=== PATIENT | female | born 1985 | race American Indian/Alaskan Native ===

== ENCOUNTER 2020-12-19 19:32 | Outpatient (CLI) | payer BC, MEDICAID ==
[2020-12-19 20:16] VITALS: BP 115/56
[2020-12-19 20:43] LABS: Bilirubin,Urine NEG (Negative); Blood,Urine NEG (Negative); Color,Urine Yellow (Yellow); Mucus,Urine FEW /HPF; Protein,Urine <15 mg/dL mg/dL (Negative); WBC,Urine < 1.0 /HPF (0.0-6.0)
[2020-12-19] MEDS ORDERED: LACTATED RINGERS 500 ML IV ONE (21:12)
--- NOTE | 2020-12-19 21:19 | Event Note ---
Date: 12/19/20 (No evidence of SROM) Pt is a 35 y.o. @ 21.5 wks with c/o possible SROM. States that she has noticed over the last couple of days that she was "leaking". FHR via doppler is 150- 160's. There are no contractions on the monitor. Sterile speculum exam completed. No evidence of SROM, nitrazine negative. Explained findings to the patient. Pt to keep next scheduled appointment and to call the office with any questions or concerns.
== END 2020-12-19 21:42 | disposition home or self-care (01) ==
LOC: TRG 19:32 → APU 19:33 → TRG 21:42
PROVIDERS: ATTEND Obstetrics & Gynecology
DX: O42.912 Preterm premature rupture of membranes, unspecified as to length of time between rupture and onset of labor, second trimester (principal); Z3A.21 21 weeks gestation of pregnancy
CPT/HCPCS: 59020; 81001

== ENCOUNTER 2021-03-03 17:39 | Outpatient (CLI) | payer BC, MEDICAID ==
[2021-03-03 18:06] VITALS: BP 114/67
[2021-03-03] MEDS ORDERED: LACTATED RINGERS 500 ML IV ONE (18:58)
== END 2021-03-03 19:13 | disposition home or self-care (01) ==
LOC: TRG 17:39 → APU 17:41 → TRG 19:13
PROVIDERS: ATTEND Obstetrics & Gynecology
DX: O60.03 Preterm labor without delivery, third trimester (principal); Z3A.36 36 weeks gestation of pregnancy
CPT/HCPCS: 36415; 84112

== ENCOUNTER 2021-04-09 19:17 | Inpatient (IN) | payer BC, MEDICAID ==
--- NOTE | 2021-04-09 21:05 | History and Physical Report ---
History of Present Illness Date of examination: 04/09/21 Date of admission: 04/09/2021 Chief complaint: "I'm having contractions" History of present illness: EDC: 04/26/2021 Gestational Age: 37 4/7 weeks Past History : 5 Term Births: 2 Premature Births: 0 Living Children: 2 Para: 2 Mult. Births: 0 Prev : 0 Aborta: 2 Elect. Ab: 2 Spont. Ab: 0 Ectopics: 0 # 1 Delivery date: 04/28/2000 Weeks Gestation: 40.4 Delivery type: Hours of labor: 24 Anesthesia type: epidural Delivery location: [facility] Infant Sex: Female weight: 8lbs 8oz # 2 Delivery date: 10/08/2006 Weeks Gestation: 40 Delivery type: Anesthesia type: epidural Delivery location: [facility] Sex: Male weight: 7lbs 8oz # 3 Delivery type: EAB # 4 Delivery type: EAB Past Medical History: Reviewed history from 10/19/2018 and no changes required: Hypertension- no meds (pt denies this Hx on 09/12/20) Negative Past Medical History Past Surgical History: negative Family History Summary: Reviewed history and no changes required: 09/13/2020 Father - Has Family History of Hypertension - Entered On: 09/12/2020 Mother - Has Family History of Hypertension - Entered On: 09/12/2020 Mother - Has Family History of Diabetes - Entered On: 09/12/2020 Social History: Reviewed history from 10/19/2018 and no changes required: provider asked pt several times if she smokes and she stated no each time. Smoking History: Patient has never smoked. Past Medical History Anesthesia Complications: negative Anemia: negative Autoimmune Disorder: negative Bleeding Disorder: negative Blood Transfusions: negative Breast Disease: negative Diabetes: negative Heart Disease: negative Hypertension: negative Hepatitis/Liver Disease: negative Kidney Disease/UTI: negative Neurologic/Epilepsy/Migraines: negative Phlebitis/Varicosities: negative Psychiatric: negative Pulmonary Disease/Asthma: negative Thyroid Disease: negative Hospitalizations: negative Surgery (Non-linen worker): negative Abnormal PAP: positive Infertility: negative Uterine Anomaly: negative Uterine Surgery (not C/S): negative Other Gynecologic Problems: negative Social Hx: provider asked pt several times if she smokes and she stated no each time. Smoking History: Patient has never smoked. Infection History Hx of STD: none HIV Risk Eval: low risk Hepatitis B Risk Eval: low risk Personal hx. of genital herpes: no Partner hx. of genital herpes: no Rash, Viral, or Febrile illness since last LMP? no Varicella/Chicken Pox Status: Previous Disease TB Risk: no Genetic History ADVANCED MATERNAL AGE Congenital Heart Defect: Mom: no Dad: no Bello Disease: Mom: no Dad: no Thalassemia Mom: no Dad: no Neural Tube Defect Mom: no Dad: no Down's Syndrome Mom: no Dad: no Tommy-Sachs Mom: no Dad: no Sickle Cell Disease/Trait Mom: no Dad: no Hemophilia Mom: no Dad: no Muscular Dystrophy Mom: no Dad: no Cystic Fibrosis Mom: no Dad: no Maury Chorea Mom: no Dad: no Mental Retardation Mom: no Dad: no Fragile X Mom: no Dad: no Other Genetic/Chromosomal Disorder Mom: no Dad: no Child w/other defect Mom: no Dad: no Enviromental Exposures Enviromental Exposures Reviewed Xray Exposure: no Medication, drug, or alcohol use since LMP: yes Chemical/Other Exposure: no Exposure to Cat Liter: yes Hx of Parvovirus (Fifth Disease): no Occupational Exposure to Children: none Comments: reports social drinking for [place] Active Medications (reviewed today): PLUS 27-1 MG ORAL TABLET ( VIT-FE FUMARATE-FA) 1 po daily PEPCID 40 MG ORAL TABLET (FAMOTIDINE) 1/2 tab BID NUVARING 0.12-0.015 MG/24HR VAGINAL RING (ETONOGESTREL-ETHINYL ESTRADIOL) 1ring, inserted vaginally leave in place for 3 consecutive weeks, removed for 1 week.Iinsert new ring 7 days after the last was removed Current Allergies (reviewed today): No known allergies Past History Past Medical History: other (see HPI) Past Surgical History: other (see HPI) GRAIN PROCESSOR History: other (see HPI) Family/Genetic History: other (see HPI) Social history: other (see HPI) - Obstetrical History Expected Date of Delivery: 04/26/21 Actual Gestation: 37 Week(s) 4 Day(s) : 5 Para: 2 Hx # Term Pregnancies: 2 Number of Pregnancies: 0 Spontaneous Abortions: 0 Induced : 2 Number of Living Children: 2 Medications and Allergies Allergies Allergy/AdvReac Type Severity Reaction Status Date / Time No Known Allergies Allergy Verified 04/09/21 20:35 Review of Systems All systems: negative Genitourinary: contractions - Vital Signs Vital signs: Vital Signs Pulse BP 103 H 124/59 04/09/21 19:40 04/09/21 19:40 Temp Pulse Resp BP Pulse Ox 98.2 F 98 H 18 124/59 99 04/09/21 19:46 04/09/21 19:46 04/09/21 19:46 04/09/21 19:46 04/09/21 19:46 - Physical Exam Breasts: Positive: deferred Cardiovascular: Regular rate Lungs: Positive: Normal air movement Abdomen: Positive: normal appearance, soft. Negative: tenderness, guarding Genitourinary (Female): Positive: normal external genitalia, normal perenium Vulva: both: normal Vagina: Positive: normal moisture. Negative: discharge Uterus: Positive: normal size, normal contour Anus/Rectum: Positive: normal perianal skin Extremities: Positive: normal - Obstetrical FHR: auscultation normal, category 1 Uterine Contraction Monitor Mode: External Cervical Dilatation: 3 (per machine setter automatic) Cervical Effacement Percentage: 60 station: -2 Uterine Contraction Pattern: Regular Uterine Contraction Intensity: Mild Results All other labs normal. GBS NEGATIVE Tests: (1) Profile I ([id number]) Order Note: Clinical Information: SRC:UR HBsAg Screen Negative Negative *1 RPR Non Reactive Non Reactive *2 Rubella Antibodies, IgG 1.76 index Immune >0.99 *3 Non-immune <0.90 Equivocal 0.90 - 0.99 Immune >0.99 ABO Grouping O *4 Rh Factor Positive *5 Please note: Prior records for this patient's ABO / Rh type are not available for additional verification. Antibody Screen Negative Negative *6 WBC 10.7 x10E3/uL 3.4-10.8 *7 RBC [L] 3.48 x10E6/uL 3.77-5.28 *8 Hemoglobin [L] 10.8 g/dL 11.1-15.9 *9 Hematocrit [L] 33.7 % 34.0-46.6 *10 MCV 97 fL 79-97 *11 MCH 31.0 pg 26.6-33.0 *12 MCHC 32.0 g/dL 31.5-35.7 *13 RDW [H] 15.8 % 11.7-15.4 *14 Platelets 249 x10E3/uL 150-450 *15 Neutrophils 64 % Not Estab. *16 Lymphs 29 % Not Estab. *17 Monocytes 6 % Not Estab. *18 Eos 1 % Not Estab. *19 Basos 0 % Not Estab. *20 ! Immature Cells <No Reported Value> *21 Neutrophils (Absolute) 6.7 x10E3/uL 1.4-7.0 *22 Lymphs (Absolute) 3.1 x10E3/uL 0.7-3.1 *23 Monocytes(Absolute) 0.7 x10E3/uL 0.1-0.9 *24 Eos (Absolute) 0.2 x10E3/uL 0.0-0.4 *25 Baso (Absolute) 0.0 x10E3/uL 0.0-0.2 *26 ! Immature Granulocytes 0 % Not Estab. *27 ! Immature Grans (Abs) 0.0 x10E3/uL 0.0-0.1 *28 ! NRBC <No Reported Value> *29 Hematology Comments: <No Reported Value> *30 Tests: (2) HIV Ag/Ab with Reflex ([id number]) HIV Screen 4th Generation wRfx Non Reactive Non Reactive *31 Tests: (3) HCV Ab w/Rflx to Verification ([id number]) ! HCV Ab <0.1 s/co ratio 0.0-0.9 *32 Tests: (4) Comment: ([id number]) ! Comment: SPRCS *33 Non reactive HCV antibody screen is consistent with no HCV infection, unless recent infection is suspected or other evidence exists to indicate HCV infection. Tests: (5) Urine Culture, Routine ([id number]) Urine Culture, Routine Final report *34 Tests: (6) Result ([id number]) ! Result 1 No growth *35 Assessment and Plan Pt presents to triage with c/o contractions every 5 minutes for the last several hours; reports SVE in office 1cm last . Denies LOF and VB, reports +FM. FHT's cat 1 and SVE per [address] court services /-2. POC d/w pt for admission and orders placed in EMR. Pt may have labor pain management if desires, per orders. Pitocin augmentation ordered PRN per protocol. Anticipate - Patient Problems (1) 37 weeks gestation of Current Visit: Yes Status: Acute (2) Supervision of high risk elderly multigravida in third trimester Current Visit: Yes Status: Acute (3) GDM (gestational diabetes mellitus) Current Visit: Yes Status: Acute Plan to address problem: Pt reports she was prescribed 12 units of regular insulin to take each night, but never took it. Pt reports POC glucose reading 94 while en route to hospital, and 140's after breakfast this am. POC glucose checks q4h, change to q2h with active labor Sliding scale insulin PRN Monitor closely and notify provider with changes in status Hypoglycemic PRN orders placed per protocol (4) History of bariatric surgery Current Visit: Yes Status: Acute
[2021-04-09] MEDS ORDERED: MINERAL OIL 30 ML ORAL LIQD PO PRN (21:08)
[2021-04-09] MEDS ORDERED: CARBOPROST TROMETHAMINE 250 MCG/1 ML INJ IM PRN (21:08)
[2021-04-09] MEDS ORDERED: ONDANSETRON 4 MG/2 ML INJ IV PRN (21:08)
[2021-04-09] MEDS ORDERED: ePHEDrine SULFATE 50 MG/1 ML INJ IV PRN (21:08)
[2021-04-09] MEDS ORDERED: LOPERAMIDE 2 MG CAP PO PRN (21:08)
[2021-04-09] MEDS ORDERED: NalbUPHINE 10 MG/1 ML INJ IV PRN (21:08)
[2021-04-09] MEDS ORDERED: LIDOCAINE (2%) 20 MG/1 ML VIAL 20 ML MDV INFILTRATI ONE (21:08)
[2021-04-09] MEDS ORDERED: OXYTOCIN 10 UNIT/1 ML INJ IM PRN (21:08)
[2021-04-09] MEDS ORDERED: METHYLERGONOVINE MALEATE 0.2 MG/ML VIAL IM PRN (21:08)
[2021-04-09] MEDS ORDERED: TERBUTALINE 1 MG/1 ML INJ SUB-Q PRN (21:08)
[2021-04-09] MEDS ORDERED: NALOXONE 0.4 MG/1 ML INJ IV PRN (21:08)
[2021-04-09] MEDS ORDERED: ACETAMINOPHEN 325 MG TAB PO PRN (21:08)
[2021-04-09] MEDS ORDERED: miSOPROStol 200 MCG TAB PR PRN (21:08)
[2021-04-09] MEDS ORDERED: LACTATED RINGERS 1,000 ML IV SCH (21:15)
[2021-04-09] MEDS ORDERED: DEXTROSE 50% IN WATER (25GM) 50 ML SYRINGE IV PRN (21:17)
[2021-04-09 21:40] LABS: Hematocrit 28.6 % (30.3-42.9); Hemoglobin 9.2 gm/dl (10.1-14.3); Mean Corpuscular HGB Conc 32 % (30-34); Mean Corpuscular Volume 81 fl (79-97); Platelet Count 293 K/mm3 (140-440); Red Blood Count 3.52 M/mm3 (3.65-5.03); Red Cell Distribution Width 18.2 % (13.2-15.2)
[2021-04-09] MEDS ORDERED: OXYTOCIN DRIP 30 UNITS/500 ML BAG IV SCH ×2 (22:00)
[2021-04-09] MEDS ORDERED: INSULIN REGULAR, HUMAN 100 UNITS/1 ML SUB-Q SCH (22:00)
--- NOTE | 2021-04-09 22:57 | Event Note ---
Date: 04/09/21 CNM to bedside. SVE /-2 and pt tolerated well. Pt requesting epidural at this time. Orders in EMR and POC reviewed with RN and pt. Anticipate
[2021-04-10] MEDS ORDERED: ePHEDrine SULFATE 50 MG/1 ML INJ IV PRN (00:17)
[2021-04-10] MEDS ORDERED: NALOXONE 2 MG/2 ML INJ IV PRN (00:17)
--- NOTE | 2021-04-10 00:19 | Anesthesia Consultation ---
Anesthesia Consult and Med Hx Date of service: 04/10/21 - Airway Anesthetic Teeth Evaluation: Good ROM Head & Neck: Adequate Mental/Hyoid Distance: Adequate Mallampati Class: Class II Intubation Access Assessment: Good - Pulmonary Exam CTA: Yes - Cardiac Exam Cardiac Exam: RRR - Pre-Operative Health Status ASA Pre-Surgery Classification: ASA2 Proposed Anesthetic Plan: Epidural - Pulmonary Hx Asthma: No - Cardiovascular System Hx Hypertension: No - Central Nervous System Hx Seizures: No Hx Psychiatric Problems: No - Endocrine Hx Renal Disease: No Hx Hypothyroidism: No Hx Hyperthyroidism: No - Hematic Hx Anemia: No Hx Sickle Cell Disease: No - Other Systems Hx Alcohol Use: Yes
--- NOTE | 2021-04-10 00:19 | Progress Note ---
Labor Epidural - Labor Epidural Start Time: 23:56 Stop Time: 00:00 Performed by:: MARY ABAD Procedure: Patient is requesting epidural for labor and pain. H&P, labs were reviewed. Patient IDed, H&P reviewed, all questions and concerns were answered, and consent was signed. Timeout was performed at bedside. Patient in sitting position. Sterile prep and drape was performed. 3ml of 1% lidocaine skin wheal at L[3]- L [4]. 18-gauge Tuohy epidural needle was advanced to loss of resistance with air technique cm. Negative CSF negative blood. Epidural catheter advanced to [15] centimeters. [negative] Aspiration [negative] test dose. Sterile dressing applied. Patient tolerated procedure.
[2021-04-10] MEDS ORDERED: fentaNYL-BUPIV 2 MCG/ML-0.125% 200 MCG/100 ML BAG EPIDURAL SCH (01:00)
[2021-04-10] MEDS ORDERED: BUPIVACAINE/PF (0.5%) 5 MG/1 ML 10 ML VIAL INFILTRATI ONE ×2 (04:19→04:40)
[2021-04-10] MEDS ORDERED: fentaNYL 100 MCG/2 ML INJ ONE (04:41)
--- NOTE | 2021-04-10 05:51 | Event Note ---
Date: 04/10/21 Pt breathing through contractions, only able to obtain temporary relief despite multiple epidural rebolus; SVE 8/100%/-1. Cat 1 FHT's and regular contraction pattern noted. Pt position changed to promote descent. Anticipate
[2021-04-10] MEDS ORDERED: PROMETHAZINE 25 MG TAB PO PRN (06:21)
[2021-04-10] MEDS ORDERED: WITCH HAZEL/ GLYCERIN PAD TP PRN (06:21)
[2021-04-10] MEDS ORDERED: MAGNESIUM HYDROXIDE (MOM) ORAL LIQD UDC PO PRN (06:21)
[2021-04-10] MEDS ORDERED: diphenhydrAMINE 25 MG CAP PO PRN (06:21)
[2021-04-10] MEDS ORDERED: HYDROcodone/ACETAMINOPHEN 5-325 MG TAB PO PRN (06:21)
[2021-04-10] MEDS ORDERED: LANOLIN/ZINC/DIMETHICONE (LANSINOH) 7 GM TP PRN (06:21)
--- NOTE | 2021-04-10 06:49 | Procedure Note ---
OB Delivery Note - Delivery Date of Delivery: 04/10/21 Building Construction Supervisor: GENA SOTELO Estimated blood loss: other (400mL) - Vaginal Delivery presentation: vertex Delivery position: OA Intrapartum events: meconium, other(please specify) (AMA, GDM on insulin) Delivery induction: none Delivery augmentation: rupture of membranes, pitocin Delivery monitor: external FHT, external uterine, internal FHT Route of delivery: Delivery placenta: spontaneous, other (sent to pathology for AMA) Delivery cord: nuchal cord (x3), 3 umbilical vessels Episiotomy: none Delivery laceration: none Anesthesia: epidural - Infant A at 1 minute: 7 at 5 minutes: 9 Infant Gender: Male (6lbs 3oz)
[2021-04-10] MEDS ORDERED: PRENATAL VIT27-FE FUMARATE-FOLIC ACID VIT TAB PO SCH (10:00)
[2021-04-10] MEDS ORDERED: BENZOCAINE/MENTHOL 20/0.5% TOP SPRAY 56 GM TP ONE (10:24)
[2021-04-10] MEDS: IBUPROFEN 800 MG TAB PO SCH ×2 (14:00→21:55)
[2021-04-10] MEDS: SIMETHICONE 80 MG CHEW TAB PO PRN ×2 (14:35→21:58)
[2021-04-11 04:11] LABS: Hematocrit 21.7 % (30.3-42.9); Hemoglobin 6.9 gm/dl (10.1-14.3)
[2021-04-11] MEDS ORDERED: TETANUS,DIPH,PERTUSS(ACELL) VACCINE 0.5 ML SYRINGE IM ONE (06:00)
[2021-04-11] MEDS: IBUPROFEN 800 MG TAB PO SCH ×2 (06:02→13:53)
--- NOTE | 2021-04-11 10:16 | Post Anesthesia Evaluation ---
- Post Anesthesia Evaluation Patient Participated: Yes Airway Patent: Yes Stable Respiratory Function: Yes Nausea/Vomiting: No Temp > 96.8F: Yes Pain Manageable: Yes Adequeate Hydration: Yes Anesthesia Complications: No Block Receding Appropriately: Yes Patient on Ventilator: No
[2021-04-11] MEDS ORDERED: CALCIUM CARBONATE 500 MG TAB CHEW PO SCH (10:30)
[2021-04-11 13:07] VITALS: BP 114/63
[2021-04-11 13:45] LABS: Hematocrit 22.1 % (30.3-42.9); Hemoglobin 7.2 gm/dl (10.1-14.3)
--- NOTE | 2021-04-11 13:52 | Discharge Summary ---
Providers - Providers Date of Admission: 04/09/21 21:09 Date of discharge: 04/11/21 (pt desires discharge home) Attending physician: YURY ESPINO Primary care physician: YURY ESPINO Hospitalization Reason for admission: active labor, IUP at term Delivery: Episiotomy: none Laceration: none complications: none Discharge diagnosis: IUP at term delivered [place] baby: male Condition at discharge: Good Disposition: 01 HOME / SELF CARE / HOMELESS - Discharge Diagnoses (1) 37 weeks gestation of Status: Acute (2) Supervision of high risk elderly multigravida in third trimester Status: Acute (3) GDM (gestational diabetes mellitus) Status: Acute (4) History of bariatric surgery Status: Acute Plan - Discharge Medications Prescriptions: Lidocain2.5%/Prilocai2.5% [Emla] 5 gm TP ONCE #1 tube - Provider Discharge Summary Activity: routine, no sex for 6 weeks, no heavy lifting 4 weeks, no strenuous exercise Diet: routine Instructions: routine Additional instructions: [] Smoking cessation referral if applicable(refer to patient education folder for contact #) [] Refer to [facility]'s [facility] Booklet Call your doctor immediately for: * Fever > 100.5 * Heavy vaginal bleeding ( >1 pad per hour) * Severe persistent headache * Shortness of breath * Reddened, hot, painful area to leg or breast * Drainage or odor from incision. * Keep incision clean and dry at all times and follow doctor's instructions regarding bathing/showering Please call [phone] and make an appointment in 1 week for your 's circumcision. Please bring the prescription with you to your visit. Do not open or apply the medication before the circumcision. Please also make an appointment for your visit in 2 weeks. Thank you! - Follow up plan Follow up: YURY ESPINO MD [Primary Care Provider] - 7 Days Forms: [facility] Discharge Summary
[2021-04-11] MEDS ORDERED: FERROUS SULFATE 325 MG TAB PO SCH (14:00)
== END 2021-04-11 15:00 | disposition home or self-care (01) | DRG 806 ==
LOC: TRG 19:17 → APU 19:18 → TRG 21:08 → LD 21:09 → OB 04-10 08:23
PROVIDERS: ADMIT Obstetrics & Gynecology; ATTEND Obstetrics & Gynecology
PROC: 10E0XZZ Delivery of Products of Conception, External Approach (ICD-10-PCS; principal; 2021-04-10)
PROC: 3E0R3BZ Introduction of Anesthetic Agent into Spinal Canal, Percutaneous Approach (ICD-10-PCS; 2021-04-10)
PROC: 00HU33Z Insertion of Infusion Device into Spinal Canal, Percutaneous Approach (ICD-10-PCS; 2021-04-10)
PROC: 3E0234Z Introduction of Serum, Toxoid and Vaccine into Muscle, Percutaneous Approach (ICD-10-PCS; 2021-04-11)
DX: O24.424 Gestational diabetes mellitus in childbirth, insulin controlled (principal); D62 Acute posthemorrhagic anemia; Z37.0 Single live birth; Z3A.37 37 weeks gestation of pregnancy; Z20.822 Contact with and (suspected) exposure to COVID-19; O69.81X0 Labor and delivery complicated by cord around neck, without compression, not applicable or unspecified; O77.0 Labor and delivery complicated by meconium in amniotic fluid; Z23 Encounter for immunization; O99.02 Anemia complicating childbirth
CPT/HCPCS: 36415; 82962; 83036; 85014; 85018; 85027; 86592; 86850; 86900; 86901; 88307; 90471; 90715; 99211; G0378; G0463; J2210; J2590; J7120; U0003